=== PATIENT | female | born 1965 | race Caucasian/White ===

== ENCOUNTER 2022-02-05 05:17 | Emergency (ER) | payer OTHER ==
[~2022-02-05] VITALS: Ht 167.6 cm; Wt 90.7 kg
== END 2022-02-05 05:34 | disposition home or self-care (01) ==
LOC: ER 05:17
DX: S70.01XA Contusion of right hip, initial encounter (principal); W01.0XXA Fall on same level from slipping, tripping and stumbling without subsequent striking against object, initial encounter; F17.200 Nicotine dependence, unspecified, uncomplicated
CPT/HCPCS: 99283